=== PATIENT | male | born 1980 | race Caucasian/White ===

== ENCOUNTER 2025-04-06 14:39 | Emergency (ER) | payer BC ==
[~2025-04-06] VITALS: Ht 188 cm; Wt 93.0 kg
[2025-04-06] MEDS ORDERED: MORPHINE SULFATE 4 MG/ML CARTRIDGE IV ONE (15:30)
[2025-04-06] MEDS ORDERED: 0.9 % SODIUM CHLORIDE 1,000 ML IV ONE (15:30)
[2025-04-06] MEDS ORDERED: MIDAZOLAM HCL/PF 5 MG/ML VIAL IV ONE (17:45)
[2025-04-06] MEDS ORDERED: FLUMAZENIL 0.5 MG/5 ML ML IV ONE (18:15)
== END 2025-04-06 18:42 | disposition home or self-care (01) ==
LOC: ER 14:39
DX: S43.015A Anterior dislocation of left humerus, initial encounter (principal); W18.39XA Other fall on same level, initial encounter; Y93.89 Activity, other specified; Y92.832 Beach as the place of occurrence of the external cause